=== PATIENT | female | born 1985 ===

== ENCOUNTER 2016-06-27 09:05 | Emergency (ER) | payer BC ==
[2016-06-27 09:17] VITALS: BMI 29.2
[2016-06-27 09:18] VITALS: TEMP 99.4; O2SAT 98
--- NOTE | 2016-06-27 09:53 | ED PDOC ---
Arrival/HPI - General Chief Complaint: Cough, Cold, Congestion Time Seen by Provider: 06/27/16 09:51 Historian: Patient - History of Present Illness Narrative History of Present Illness (Text): 06/27/16 09:51 This 30 yo female with pmh asthma, presents to this ED c/o nasal congestion, cough, and wheezing x 2 days. Patient stated she was prescribed Medrol Dose pack, and Albuterol, but she has not fill these medication due to high cost. Patient is requesting nebulizer. Patient denies cp, rash, cunningham, fever, recent travel, sick contact, leg swelling, calf pain, or abnormal gait. PERC negative for PE. Time/Duration: Other (2 days) Context: Home Past Medical History - Provider Review Nursing Documentation Reviewed: Yes - Infectious Disease Hx of Infectious Diseases: None - Tetanus Immunization Tetanus Immunization: Unknown - Cardiac Hx Cardiac Disorders: No - Pulmonary Hx Respiratory Disorders: Yes Hx Asthma: Yes - Neurological Hx Neurological Disorder: No - HEENT Hx HEENT Disorder: No - Renal Hx Renal Disorder: No - Endocrine/Metabolic Hx Endocrine Disorders: No - Hematological/Oncological Hx Blood Disorders: No - Integumentary Hx Dermatological Disorder: No - Musculoskeletal/Rheumatological Hx Musculoskeletal Disorders: No - Gastrointestinal Hx Gastrointestinal Disorders: Yes Hx Gall Bladder Disease: Yes - Genitourinary/Gynecological Hx Genitourinary Disorders: No - Psychiatric Hx Psychophysiologic Disorder: No Hx Anxiety: No Hx Bipolar Disorder: No Hx Depression: No Hx Emotional Abuse: No Hx Hallucinations: No Hx Panic Disorder: No Hx Post Traumatic Stress Disorder: No Hx Psychosis: No Hx Physical Abuse: No Hx Schizophrenia: No Hx Sexual Abuse: No Hx Substance Use: No - Surgical History Hx Cholecystectomy: Yes - Anesthesia Hx Anesthesia: Yes Hx Anesthesia Reactions: No Hx Malignant Hyperthermia: No - Suicidal Assessment Feels Threatened In Home Enviroment: No Family/Social History - Physician Review Nursing Documentation Reviewed: Yes Family/Social History: No Known Family HX Smoking Status: Former Smoker Hx Alcohol Use: Yes Frequency of alcohol use: Socially Hx Substance Use: No Hx Substance Use Treatment: No Allergies/Home Meds Allergies/Adverse Reactions: Allergies Iodine and Iodide Containing Produc Allergy (Verified 06/27/16 09:17) ANAPHYLAXIS latex Allergy (Verified 06/27/16 09:17) RASH Home Medications: Home Meds Medication Instructions Recorded Confirmed Ranitidine HCl [Zantac] 300 mg PO DAILY 06/27/16 06/27/16 Review of Systems - Review of Systems Constitutional: Normal. absent: Fatigue, Weight Change, Fevers Eyes: Normal ENT: Normal, Rhinorrhea. absent: Sore Throat Respiratory: Cough, Sputum, Wheezing. absent: SOB Cardiovascular: Normal. absent: Chest Pain Gastrointestinal: Normal. absent: Abdominal Pain, Nausea, Vomiting Genitourinary Female: Normal. absent: Dysuria, Frequency, Hematuria Musculoskeletal: Normal Skin: Normal. absent: Rash Neurological: Normal. absent: Headache, Dizziness, Focal Weakness Endocrine: Normal Hemo/Lymphatic: Normal Psychiatric: Normal Physical Exam Vital Signs Temp Pulse Resp BP Pulse Ox 06/27/16 09:17 99.4 F 92 H 16 151/96 H 98 Temperature: Afebrile Blood Pressure: Normal Pulse: Regular Respiratory Rate: Normal Appearance: Positive for: Well-Appearing, Non-Toxic, Comfortable Pain Distress: None Mental Status: Positive for: Alert and Oriented X 3 - Systems Exam Head: Present: Atraumatic, Normocephalic Pupils: Present: PERRL Extroacular Muscles: Present: EOMI Conjunctiva: Present: Normal Mouth: Present: Moist Mucous Membranes Neck: Present: Normal Range of Motion. No: Meningeal Signs Respiratory/Chest: Present: Good Air Exchange, Wheezes (mild, scattered). No: Respiratory Distress, Accessory Muscle Use, Decreased Breath Sounds, Rales, Retracting, Rhonchi, Tachypneic Cardiovascular: Present: Regular Rate and Rhythm, Normal S1, S2. No: Murmurs Abdomen: Present: Normal Bowel Sounds. No: Tenderness, Distention, Peritoneal Signs Back: Present: Normal Inspection. No: CVA Tenderness Upper Extremity: Present: Normal Inspection, Normal ROM, NORMAL PULSES, Neurovascularly Intact, Capillary Refill < 2s. No: Cyanosis, Edema Lower Extremity: Present: Normal Inspection, NORMAL PULSES, Normal ROM, Neurovascularly Intact, Capillary Refill < 2 s. No: Edema, CALF TENDERNESS Neurological: Present: GCS=15, CN II-XII Intact, Speech Normal, Motor Func Grossly Intact, Normal Sensory Function, Normal Cerebellar Funct, Gait Normal, Memory Normal Skin: Present: Warm, Dry, Normal Color. No: Rashes Psychiatric: Present: Alert, Oriented x 3 Medical Decision Making ED Course and Treatment: 06/27/16 11:08 Re-evaluation. Patient feels better. Discussed results and plan with patient who expresses understanding. All questions answered and there is agreement with the plan to discharge home with instructions. Patient stable for discharge. Return if symptoms persist or worsen. Re-evaluation Time: 11:08 Reassessment Condition: Re-examined, Improved - Medication Orders Current Medication Orders: Discontinued Medications Albuterol/Ipratropium (Duoneb 3 Mg/0.5 Mg (3 Ml) Ud) 6 ml IH STAT STA Stop: 06/27/16 10:02 Last Admin: 06/27/16 10:14 Dose: 6 ML Prednisone (Prednisone Tab) 60 mg PO STAT ONE Stop: 06/27/16 10:01 Last Admin: 06/27/16 10:13 Dose: 60 MG - Procedure PROCEDURE NOTE (Text): 06/27/16 11:14 Nebulizer Machine prescription was written. Disposition/Present on Arrival - Present on Arrival Any Indicators Present on Arrival: No History of DVT/PE: No History of Uncontrolled Diabetes: No Urinary Catheter: No History of Decub. Ulcer: No History Surgical Site Infection Following: None - Disposition Have Diagnosis and Disposition been Completed?: Yes Diagnosis: Asthma exacerbation Disposition: HOME/ ROUTINE Disposition Time: 11:08 Patient Plan: Admission Patient Problems: Current Active Problems Problem Status Diagnosed Asthma exacerbation Acute Condition: GOOD Discharge Instructions (ExitCare): Asthma (ED) Additional Instructions: Call private doctor for follow up visit in 1-2 days. Take medication as instructed. return to emergency if symptoms worsen. Prescriptions: Albuterol 0.083% [Albuterol 0.083% Inhal Ambar (2.5 mg/3 ml) UD] 2.5 mg IH Q6H PRN #1 packet PRN Reason: Wheezing Prednisone [Deltasone] 60 mg PO DAILY #15 tablet Doxycycline Monohydrate 100 mg PO BID #20 tablet Promethazine DM [Phenergan DM Syrup] 5 ml PO DAILY PRN #120 ml PRN Reason: Cough Referrals: Alisa Rae, [Primary Care Provider] - Follow up with primary [facility] [Outside] - Follow up with primary [facility] [place] [Outside] - Follow up with primary Forms: WORK NOTE
[2016-06-27] MEDS ORDERED: Albuterol-Ipratrop 3 mg / 0.5 (3 ml) UD IH STA (10:01)
[2016-06-27 11:40] VITALS: BP 157/91; PULSE 88; RESP 17
--- NOTE | 2016-06-27 18:12 | CARD ---
APPROVED REPORT EKG Measurement Heart [id number] <Conclusion> Normal sinus rhythm Normal ECG
== END 2016-06-27 11:43 | disposition home or self-care (01) ==
LOC: ED 09:05
DX: J45.901 Unspecified asthma with (acute) exacerbation (principal); Z87.891 Personal history of nicotine dependence